=== PATIENT | male | born 1985 | race Caucasian/White ===

== ENCOUNTER 2019-11-02 13:45 | Inpatient (IN) | payer MEDICARE ==
[~2019-11-02] VITALS: Ht 170.2 cm; Wt 77.6 kg
[2019-11-02] MEDS: OLANZAPINE 5MG TABLET ODT PO SCH (18:35)
[2019-11-02] MEDS: LORAZEPAM 2MG/ML CPJ IM PRN (18:35)
[2019-11-02] MEDS ORDERED: ZIPRASIDONE MESYLATE 20MG/VIAL IM ONE ×2 (18:45→20:30)
[2019-11-02] MEDS ORDERED: LORAZEPAM 2MG/ML CPJ IM ONE ×2 (18:45→20:30)
[2019-11-02] MEDS ORDERED: DIPHENHYDRAMINE 50MG/ML VIAL IM ONE (20:30)
[2019-11-02 21:09] LABS: BASOPHILS % 0.5 % (0.0-2.0); EOSINOPHILS % 1.1 % (0.0-5.0); HEMATOCRIT. 38.6 % (42.0-52.0); HEMOGLOBIN. 13.6 g/dL (14.0-18.0); LYMPHOCYTES % 14.3 % (20.0-50.0); MEAN CORPUSCULAR HEMOGLOBIN 31.8 pg (28.0-32.0); MEAN CORPUSCULAR VOLUME 90.1 fL (80.0-94.0); MEAN PLATELET VOLUME 8.3 fl (7.4-10.4); MONOCYTES % 5.7 % (2.0-8.0); NEUTROPHILS % 78.4 % (40.0-76.0); PLATELET 279 x1000/uL (130-400); RED BLOOD CELL COUNT 4.29 mill/uL (4.7-6.1); RED CELL DISTRIBUTION WIDTH 12.5 % (11.6-14.6)
[2019-11-02 21:12] LABS: CHLORIDE 108 mEq/L (98-107)
[2019-11-02 21:16] LABS: ETHANOL BLOOD < 10 mg/dL
[2019-11-03] MEDS: LORAZEPAM 2MG/ML CPJ IM PRN (02:22)
[2019-11-03] MEDS ORDERED: KETOROLAC 60MG/2ML VIAL IM NR (03:45)
[2019-11-03] MEDS ORDERED: OLANZAPINE 10 MG/VIAL IM ONE (06:30)
[2019-11-03 09:02] LABS: CLARITY URINE CLOUDY (CLEAR); COLOR URINE DARK YELLOW (YELLOW); KETONES URINE TRACE (NEGATIVE); LEUKOCYTE ESTERASE URINE NEGATIVE (NEGATIVE); NITRITE URINE NEGATIVE (NEGATIVE); OCCULT BLOOD URINE NEGATIVE (NEGATIVE); PROTEIN URINE 1+ (NEGATIVE); SPECIFIC GRAVITY URINE 1.037 (1.005-1.030)
[2019-11-03 09:35] LABS: *AMPHETAMINES SCREEN URINE PRESUMTIVE POSITIVE (NEGATIVE); *BARBITURATES SCREEN URINE NEGATIVE (NEGATIVE); *BENZODIAZEPINES SCREEN URINE NEGATIVE (NEGATIVE); *COCAINE SCREEN URINE NEGATIVE (NEGATIVE); METHADONE URINE SCREEN NEGATIVE (NEGATIVE); OPIATES URINE SCREEN NEGATIVE (NEGATIVE); PHENCYCLIDINE URINE SCREEN NEGATIVE (NEGATIVE)
[2019-11-03 09:36] LABS: CANNABINOID URINE SCREEN NEGATIVE (NEGATIVE)
[2019-11-03] MEDS: OLANZAPINE 5MG TABLET ODT PO SCH ×2 (09:43→17:50)
[2019-11-04] MEDS ORDERED: SODIUM CHLORIDE 0.9% 1,000 ML IV ONE ×3 (08:30→22:34)
[2019-11-04] MEDS: OLANZAPINE 5MG TABLET ODT PO SCH ×2 (09:22→17:00)
[2019-11-04 23:10] LABS: BASOPHILS % 0.5 % (0.0-2.0); EOSINOPHILS % 3.6 % (0.0-5.0); HEMATOCRIT. 26.6 % (42.0-52.0); HEMOGLOBIN. 9.5 g/dL (14.0-18.0); LYMPHOCYTES % 29.4 % (20.0-50.0); MEAN CORPUSCULAR HEMOGLOBIN 32.2 pg (28.0-32.0); MEAN CORPUSCULAR VOLUME 90.3 fL (80.0-94.0); MEAN PLATELET VOLUME 8.6 fl (7.4-10.4); MONOCYTES % 8.5 % (2.0-8.0); PLATELET 199 x1000/uL (130-400); RED BLOOD CELL COUNT 2.95 mill/uL (4.7-6.1)
[2019-11-04 23:13] LABS: CLARITY URINE CLEAR (CLEAR); COLOR URINE YELLOW (YELLOW); KETONES URINE NEGATIVE (NEGATIVE); LEUKOCYTE ESTERASE URINE NEGATIVE (NEGATIVE); NITRITE URINE NEGATIVE (NEGATIVE); OCCULT BLOOD URINE NEGATIVE (NEGATIVE); PH URINE 6.5 (4.5-8.0); PROTEIN URINE NEGATIVE (NEGATIVE); SPECIFIC GRAVITY URINE 1.028 (1.005-1.030)
[2019-11-04 23:14] LABS: CHLORIDE 108 mEq/L (98-107)
[2019-11-04 23:15] LABS: PROTHROMBIN TIME 10.8 sec (9.6-11.0)
[2019-11-05] MEDS ORDERED: PIPERACILLIN/TAZOBACTAM 3.375GM/50ML PREMIX IV ONE (00:30)
[2019-11-05] MEDS ORDERED: VANCOMYCIN 1 G PREMIX 200 ML IV SCH (00:30)
[2019-11-05] MEDS ORDERED: TETANUS, DIPHTHERIA, PERTUSSIS VAC/PF 0.5ML (>7YR OLD) IM ONE (00:30)
[2019-11-05] MEDS ORDERED: PIPERACILLIN/TAZ 3.375G PREMIX 50 ML IV NR (00:45)
[2019-11-05] MEDS: LORAZEPAM 2MG/ML CPJ IM PRN (01:52)
[2019-11-05] MEDS ORDERED: SODIUM CHLORIDE 0.9% 1,000 ML IV ONE (03:45)
[2019-11-05 08:00] VITALS: BP 107/55
[2019-11-05] MEDS ORDERED: PIPERACILLIN/TAZ 3.375G PREMIX 50 ML IV SCH (08:30)
[2019-11-05] MEDS ORDERED: ONDANSETRON HCL 4MG/2ML INJ IV PRN (08:30)
[2019-11-05] MEDS ORDERED: ACETAMINOPHEN 325MG TABLET PO PRN (08:30)
[2019-11-05] MEDS ORDERED: CLONIDINE 0.1MG TABLET PO PRN (08:30)
[2019-11-05 08:41] VITALS: BP 105/55
[2019-11-05] MEDS ORDERED: ALPR-339 MT (09:02)
[2019-11-05] MEDS ORDERED: AMLO-500 MT (09:02)
[2019-11-05] MEDS ORDERED: PARO-41 MT (09:02)
[2019-11-05] MEDS ORDERED: ZIPR20CA12 MT (09:02)
[2019-11-05] MEDS: VANCOMYCIN 1 G PREMIX 200 ML IV SCH ×2 (11:18→17:52)
[2019-11-05 12:00] VITALS: BP 110/70
[2019-11-05] MEDS ORDERED: PIPERACILLIN/TAZOBACTAM 3.375 G in DEXT 5% WATER 100 ML IV SCH (12:00)
[2019-11-05 16:00] VITALS: BP 111/53
[2019-11-05 16:01] LABS: PHOSPHORUS 3.4 mg/dL (2.5-4.9)
[2019-11-05] MEDS ORDERED: OLANZAPINE 5MG TABLET ODT PO PRN (17:45)
[2019-11-05] MEDS ORDERED: LORAZEPAM 2MG/ML CPJ IV PRN (19:15)
== END 2019-11-05 20:00 | disposition left against medical advice (07) | DRG 603 ==
LOC: ER 13:45 → 6WST 11-05 04:33 → EDBEDREQ 11-05 04:48 → EDBEDREQTM 11-05 04:48 → EDBEDREQDT 11-05 04:48 → EDBEDREQSVC 11-05 04:48 → ENRESERV 11-05 07:31 → ER 11-05 08:16
PROVIDERS: ADMIT Internal Medicine; ATTEND Internal Medicine
DX: L03.115 Cellulitis of right lower limb (principal); F23 Brief psychotic disorder; R71.0 Precipitous drop in hematocrit; Z53.29 Procedure and treatment not carried out because of patient's decision for other reasons; F17.210 Nicotine dependence, cigarettes, uncomplicated; S81.801A Unspecified open wound, right lower leg, initial encounter; X58.XXXA Exposure to other specified factors, initial encounter; Y93.89 Activity, other specified; Y92.89 Other specified places as the place of occurrence of the external cause; Z78.1 Physical restraint status; Y99.8 Other external cause status
CPT/HCPCS: 36415; 71045; 73590; 80053; 80320; 83735; 84100; 85025; 90715; 93005; 93970; 96372; 99285; J1200; J1885; J2060; J2543; J3370; J3486; J3490; J7030; J7060; G0480